=== PATIENT | female | born 1990 | race Hispanic/Latino ===

== ENCOUNTER 2022-09-21 18:11 | Emergency (ER) | payer BC ==
[2022-09-21 19:35] LABS: #Eosinphils 0.1 10x3/uL (0.0-0.5); #Monocytes 0.6 10x3/uL (0.0-1.1); #Neutrophils 4.3 10x3/uL (1.5-8.4); %Basophils 0.4 % (0.0-2.0); %Eosinophils 1.2 % (0.0-6.0); %Monocytes 8.1 % (0.0-10.0); Hemoglobin 13.6 g/dL (12.0-15.5); Mean Corpuscular HGB CONC 34.4 g/dL (32.0-36.0); Mean Corpuscular Hemoglobin 28.8 pg (27.0-33.0); Mean Corpuscular Volume 83.5 fl (81.6-98.3); Mean Platelet Volume 8.4 fl (7.4-10.4); Platelet Count 355 10x3/uL (150-450); RBC Distribution Width 13.1 % (11.5-14.5); Red Blood Cell (RBC) Count 4.73 10x6/uL (3.90-5.03); White Blood Cell (WBC) Count 7.4 10x3/uL (3.5-10.5)
[2022-09-21 19:41] LABS: Bilirubin Neg (Negative); Blood, Urine 250 (Negative); Glucose, Urine (Dipstick) Normal (Negative); Ketone, Urine Negative (Negative); Leukocyte Negative (Negative); Nitrite Negative (Negative); Protein, Urine (Dipstick) Negative (Neg-Trace); Urobilinogen Normal mg/dL (Less than 2)
[2022-09-21 19:42] LABS: Clarity Clear (Clear)
[2022-09-21 19:47] LABS: ALT (SGPT) 18 U/L (8-55); AST (SGOT) 17 U/L (5-34); Alkaline Phosphatase 66 U/L (40-110); Anion Gap 12 mmol/L (10-20); BUN (Urea Nitrogen) 11 mg/dL (7.0-18.7); Bilirubin, Total 0.4 mg/dL (0.2-1.2); Calc. Creatinine Clearance 0 mL/min (70-130); Calcium 9.5 mg/dL (7.8-10.44); Carbon Dioxide 24 mmol/L (22-29); Chloride 106 mmol/L (98-107); Estimated GFR 120; Glucose 99 mg/dL (70-105); Potassium 3.5 mmol/L (3.5-5.1); Sodium 138 mmol/L (136-145)
[2022-09-21 19:48] LABS: Bacteria/HPF 2+ HPF (None Seen); Mucous/LPF 1+ LPF (<2+); WBC/HPF 0-3 HPF (0-3)
== END 2022-09-21 21:04 ==
LOC: CSHERS 18:11
DX: O20.0 Threatened abortion (principal); Z3A.01 Less than 8 weeks gestation of pregnancy
CPT/HCPCS: 76856; 80053; 81003; 81015; 84702; 85025; 86900; 86901; 87086

== ENCOUNTER 2023-10-22 15:58 | Observation (INO) | payer BC ==
[2023-10-22] MEDS ORDERED: hydrALAZINE 20 MG/ML VIAL SLOW IVP PRN (16:08)
[2023-10-22 16:25] VITALS: BMI 25.6
[2023-10-22] MEDS: Lactated Ringer's 1,000 ML IV SCH (17:58)
[2023-10-22] MEDS: Morphine 4 MG/ML VIAL SLOW IVP PRN (17:59)
[2023-10-22 18:17] LABS: #Basophils 0.1 10x3/uL (0.0-0.2); #Monocytes 0.7 10x3/uL (0.0-1.1); #Neutrophils 10.7 10x3/uL (1.5-8.4); %Basophils 0.4 % (0.0-2.0); %Eosinophils 0.3 % (0.0-6.0); %Monocytes 5.2 % (0.0-10.0); %Neutrophils 82.6 % (40.0-75.0); Hematocrit 34.5 % (34.9-44.5); Mean Corpuscular HGB CONC 34.8 g/dL (32.0-36.0); Mean Corpuscular Volume 83.3 fl (81.6-98.3); Mean Platelet Volume 8.7 fl (7.4-10.4); Platelet Count 284 10x3/uL (150-450); Red Blood Cell (RBC) Count 4.14 10x6/uL (3.90-5.03)
[2023-10-22 18:29] LABS: ALT (SGPT) 37 U/L (8-55); AST (SGOT) 28 U/L (5-34); Albumin 3.8 g/dL (3.5-5.0); Alkaline Phosphatase 81 U/L (40-110); Anion Gap 14 mmol/L (10-20); BUN (Urea Nitrogen) 10 mg/dL (7.0-18.7); Bilirubin, Total 0.5 mg/dL (0.2-1.2); Calc. Creatinine Clearance 100 mL/min (70-130); Calcium 8.9 mg/dL (7.8-10.44); Carbon Dioxide 20 mmol/L (22-29); Chloride 105 mmol/L (98-107); Estimated GFR 99; Globulin 3.4 g/dL (2.4-3.5); Glucose 80 mg/dL (70-105); Potassium 3.5 mmol/L (3.5-5.1); Protein, Total 7.2 g/dL (6.0-8.3); Sodium 135 mmol/L (136-145)
[2023-10-22] MEDS ORDERED: Ondansetron ODT 4 MG TAB PO PRN (19:13)
[2023-10-22] MEDS ORDERED: Ondansetron PF 4 MG/2 ML Vial IVP PRN (19:13)
[2023-10-22] MEDS ORDERED: Sodium Chloride 0.9% 1,000 ML IV SCH (19:15)
[2023-10-22] MEDS ORDERED: cefTRIAXone\\ROCEPHIN 2 GM in Sodium Chloride 0.9% 100 ML IVPB SCH (21:00)
[2023-10-23] MEDS: Acetaminophen 500 MG TAB PO PRN (09:13)
== END 2023-10-23 14:42 | disposition home or self-care (01) ==
LOC: CSHLD/OP 15:58 → INTOOBSV 19:34 → CSHLD 19:34
PROVIDERS: ADMIT Obstetrics & Gynecology; ATTEND Obstetrics & Gynecology
DX: O99.891 Other specified diseases and conditions complicating pregnancy (principal); N13.2 Hydronephrosis with renal and ureteral calculous obstruction; Z3A.27 27 weeks gestation of pregnancy; Z79.899 Other long term (current) drug therapy; Z91.013 Allergy to seafood
CPT/HCPCS: 74181; 76770; 80053; 85025; G0378; J0696; J2270; J3490; J7050

== ENCOUNTER 2024-01-07 09:28 | Inpatient (IN) | payer BC ==
[~2024-01-07 09:28] MED LIST: Bupivacaine/Epinephrine 0.25% 30 ML VIAL ONE; ePHEDrine Sulfate 50 MG/10 ML VIAL ONE
[2024-01-07 09:47] VITALS: BMI 27.1
[2024-01-07 10:33] LABS: Creatinine, Urine Less than 20.00 mg/dL (47-110); Protein, Urine Random Quant Less than 10 mg/dL (1-14)
[2024-01-07 10:43] LABS: #Basophils 0.05 10x3/uL (0.0-0.2); #Eosinphils 0.07 10x3/uL (0.0-0.5); #Neutrophils 8.47 10x3/uL (1.5-8.4); %Basophils 0.4 % (0.0-2.0); %Eosinophils 0.6 % (0.0-6.0); %Lymphocytes 15.9 % (18.0-47.0); %Monocytes 7.9 % (0.0-10.0); %Neutrophils 74.7 % (40.0-75.0); Hematocrit 33.8 % (34.9-44.5); Hemoglobin 11.5 g/dL (12.0-15.5); Mean Corpuscular Hemoglobin 27.5 pg (27.0-33.0); Mean Corpuscular Volume 80.9 fl (81.6-98.3); Mean Platelet Volume 9.3 fl (7.4-10.4); Platelet Count 327 10x3/uL (150-450); RBC Distribution Width 14.6 % (11.5-14.5); Red Blood Cell (RBC) Count 4.18 10x6/uL (3.90-5.03); White Blood Cell (WBC) Count 11.4 10x3/uL (3.5-10.5)
[2024-01-07 10:59] LABS: ALT (SGPT) 15 U/L (8-55); AST (SGOT) 21 U/L (5-34); Albumin 2.6 g/dL (3.5-5.0); Alkaline Phosphatase 187 U/L (40-110); Anion Gap 12 mmol/L (10-20); BUN (Urea Nitrogen) 8 mg/dL (7.0-18.7); Bilirubin, Total 0.5 mg/dL (0.2-1.2); Calc. Creatinine Clearance 134 mL/min (70-130); Calcium 9.2 mg/dL (7.8-10.44); Carbon Dioxide 18 mmol/L (22-29); Chloride 107 mmol/L (98-107); Estimated GFR 120; Globulin 3.9 g/dL (2.4-3.5); Glucose 84 mg/dL (70-105); Potassium 4.1 mmol/L (3.5-5.1); Protein, Total 6.5 g/dL (6.0-8.3); Sodium 133 mmol/L (136-145)
[2024-01-07] MEDS: hydrALAZINE 20 MG/ML VIAL ONE (11:08)
[2024-01-07] MEDS: Magnesium Sulfate 20 gm/500 ml 20 GM/500 ML BAG ONE (11:22)
[2024-01-07] MEDS ORDERED: Labetalol HCl 100 MG/20 ML VIAL SLOW IVP PRN ×2 (12:22)
[2024-01-07] MEDS ORDERED: Lorazepam 2 MG/ML VIAL SLOW IVP PRN (12:22)
[2024-01-07] MEDS: Misoprostol 100 MCG TAB VAG SCH (12:22)
[2024-01-07] MEDS ORDERED: Ibuprofen 800 MG TAB PO PRN (12:22)
[2024-01-07] MEDS ORDERED: hydrALAZINE 20 MG/ML VIAL SLOW IVP PRN (12:22)
[2024-01-07] MEDS ORDERED: HYDROcodone/Acetaminophen 5/325 mg Tablet PO PRN ×2 (12:22)
[2024-01-07] MEDS ORDERED: fentaNYL 50 mcg/mL 1 mL Vial SLOW IVP PRN (12:22)
[2024-01-07] MEDS ORDERED: Calcium Gluc 4.6 MEQ/10 ML (100 MG/ML) SLOW IVP PRN (12:22)
[2024-01-07] MEDS ORDERED: Lidocaine 1% (PF) 30 ML VIAL SC PRN (12:22)
[2024-01-07] MEDS ORDERED: Promethazine HCl 25 MG/ML VIAL IM PRN ×2 (12:22→20:34)
[2024-01-07] MEDS ORDERED: Oxytocin 30 units/NS 500 ML 500 ML IV SCH (12:30)
[2024-01-07] MEDS ORDERED: Magnesium Sulfate 20 gm/500 ml 20 GM/500 ML BAG IVPB SCH (12:30)
[2024-01-07 13:48] LABS: Syphilis Antibody Nonreactive (Nonreactive); Syphilis Antibody Index 0.08 S/CO (<1.00 Non-Reactive)
[2024-01-07 13:49] LABS: HBsAg Index 0.19 S/CO (0-0.99); Hep B Surf Ag - L&D Non-Reactive S/CO (NonReactive)
[2024-01-07] MEDS: Acetaminophen 500 MG TAB PO PRN (16:00)
[2024-01-07] MEDS: Ondansetron PF 4 MG/2 ML Vial IVP PRN (16:53)
[2024-01-07] MEDS: hydrALAZINE 20 MG/ML VIAL SLOW IVP PRN (18:37)
[2024-01-07] MEDS: Misoprostol 100 MCG TAB ONE (19:36)
[2024-01-07] MEDS: fentaNYL/Ropivacaine Epidural 100 ML ONE (20:08)
[2024-01-07] MEDS ORDERED: Ondansetron PF 4 MG/2 ML Vial IVP PRN (20:34)
[2024-01-07] MEDS ORDERED: Acetaminophen 325 MG TAB PO PRN (20:34)
[2024-01-07] MEDS ORDERED: Naloxone HCl 0.4 mg/ml Vial IVP PRN ×2 (20:34)
[2024-01-07] MEDS ORDERED: ePHEDrine Sulfate 50 MG/10 ML VIAL SLOW IVP PRN (20:34)
[2024-01-07] MEDS ORDERED: diphenhydrAMINE 50 MG/ML VIAL IVP PRN (20:34)
[2024-01-07] MEDS ORDERED: Lactated Ringer's 500 ML IV PRN (20:34)
[2024-01-07] MEDS ORDERED: Moisturizing Cream (Eucerin) 113 GM JAR TOP PRN (20:34)
[2024-01-07] MEDS ORDERED: fentaNYL 2 mcg/Ropivacaine 0.2% Epidural 100 ML CADD EPIDURAL SCH (20:45)
[2024-01-07] MEDS ORDERED: Communication Order-Pharmacy FS SCH (20:45)
[2024-01-07] MEDS: Oxytocin 30 units/NS 500 ML 500 ML IV SCH (21:12)
[2024-01-08] MEDS: Phenylephrine 10 MG/ML VIAL ONE (01:14)
[2024-01-08] MEDS: PHENYLEPHRINE-NS 100 MCG/ML 10 ML SYRINGE ONE (01:14)
[2024-01-08] MEDS: Lactated Ringer's 1,000 ML IV SCH (01:15)
[2024-01-08] MEDS ORDERED: traMADol HCl 50 MG TAB PO PRN (01:43)
[2024-01-08] MEDS ORDERED: Bisacodyl 10 MG SUPP PR PRN ×2 (01:43→18:48)
[2024-01-08] MEDS ORDERED: Ondansetron PF 4 MG/2 ML Vial IVP PRN ×2 (01:43→18:48)
[2024-01-08] MEDS ORDERED: Boostrix 0.5 ML (Tdap) VIAL (>/=7 yrs of age) IM ONE (01:43)
[2024-01-08] MEDS ORDERED: hydrALAZINE 20 MG/ML VIAL SLOW IVP PRN ×2 (01:43→18:48)
[2024-01-08] MEDS ORDERED: Preparation H Ointment 28 GM TUBE PR PRN (01:43)
[2024-01-08] MEDS ORDERED: Milk Of Magnesia 30 ML UDCUP PO PRN ×2 (01:43→18:48)
[2024-01-08] MEDS ORDERED: Benzocaine-Menthol 82.5 ML CAN TOP PRN (01:43)
[2024-01-08] MEDS ORDERED: Lanolin Ointment 7 GM TUBE TOP PRN ×2 (01:43→18:48)
[2024-01-08] MEDS ORDERED: diphenhydrAMINE 25 MG CAP PO PRN ×2 (01:43→18:48)
[2024-01-08] MEDS ORDERED: Carboprost 250 MCG/ML AMP IM PRN (01:46)
[2024-01-08] MEDS ORDERED: Diphenoxylate HCl/Atropine Tablet PO PRN (01:47)
[2024-01-08] MEDS: Oxytocin 30 units/NS 500 ML 500 ML IV SCH (01:47)
[2024-01-08] MEDS: Ampicillin/Sulbactam 3 GM in Sodium Chloride 0.9% 100 ML IVPB SCH (02:12)
[2024-01-08] MEDS: Ibuprofen 800 MG TAB PO SCH ×2 (02:26→20:20)
[2024-01-08 03:21] LABS: #Basophils 0.03 10x3/uL (0.0-0.2); #Neutrophils 18.09 10x3/uL (1.5-8.4); %Basophils 0.1 % (0.0-2.0); %Lymphocytes 5.2 % (18.0-47.0); %Monocytes 4.5 % (0.0-10.0); %Neutrophils 89.8 % (40.0-75.0); Hematocrit 32.1 % (34.9-44.5); Hemoglobin 10.8 g/dL (12.0-15.5); Mean Corpuscular HGB CONC 33.6 g/dL (32.0-36.0); Mean Corpuscular Hemoglobin 26.9 pg (27.0-33.0); Mean Platelet Volume 9.1 fl (7.4-10.4); Platelet Count 309 10x3/uL (150-450); RBC Distribution Width 14.6 % (11.5-14.5); Red Blood Cell (RBC) Count 4.01 10x6/uL (3.90-5.03); White Blood Cell (WBC) Count 20.2 10x3/uL (3.5-10.5)
[2024-01-08] MEDS ORDERED: Ibuprofen 800 MG TAB PO SCH (06:00)
[2024-01-08] MEDS: Acetaminophen 500 MG TAB PO SCH (08:50)
[2024-01-08] MEDS: NIFEdipine XL 30 MG ER.TAB PO SCH (08:50)
[2024-01-08] MEDS: Prenatal Vitamin 1 TAB PO SCH (08:51)
[2024-01-08] MEDS: Docusate 100 MG CAP PO SCH ×2 (15:15→20:20)
[2024-01-08] MEDS: Ferrous Sulfate 325 MG TAB PO SCH (15:15)
[2024-01-08] MEDS: Tranexamic Acid 1,000 MG/10 ML VIAL ONE (15:16)
[2024-01-08] MEDS: Misoprostol 200 MCG TAB ONE (15:16)
[2024-01-08] MEDS: Carboprost 250 MCG/ML AMP ONE (15:17)
[2024-01-08] MEDS: hydrALAZINE 20 MG/ML VIAL SLOW IVP PRN (17:35)
[2024-01-08] MEDS ORDERED: Oxytocin 30 units/NS 500 ML 500 ML IV SCH (18:48)
[2024-01-08] MEDS: Benzocaine-Menthol 82.5 ML CAN TOP PRN (20:19)
[2024-01-08] MEDS: HYDROcodone/Acetaminophen 5/325 mg Tablet PO PRN (20:21)
[2024-01-09] MEDS: Ferrous Sulfate 325 MG TAB PO SCH ×2 (04:45→09:38)
[2024-01-09 11:23] VITALS: BP 128/82; TEMP 98.5
== END 2024-01-09 15:20 | disposition home or self-care (01) | DRG 807 ==
LOC: CSHLD/OP 09:28 → CSHLD 10:43 → CSHPP 01-08 17:34
PROVIDERS: ADMIT Obstetrics & Gynecology; ATTEND Obstetrics & Gynecology
PROC: 10E0XZZ Delivery of Products of Conception, External Approach (ICD-10-PCS; principal; 2024-01-08)
PROC: 0HQ9XZZ Repair Perineum Skin, External Approach (ICD-10-PCS; 2024-01-08)
PROC: 0UQMXZZ Repair Vulva, External Approach (ICD-10-PCS; 2024-01-08)
PROC: 3E0P7VZ Introduction of Hormone into Female Reproductive, Via Natural or Artificial Opening (ICD-10-PCS; 2024-01-08)
PROC: 3E033XZ Introduction of Vasopressor into Peripheral Vein, Percutaneous Approach (ICD-10-PCS; 2024-01-08)
DX: O14.14 Severe pre-eclampsia complicating childbirth (principal); Z37.0 Single live birth; O70.0 First degree perineal laceration during delivery; Z3A.38 38 weeks gestation of pregnancy; O76 Abnormality in fetal heart rate and rhythm complicating labor and delivery; O71.82 Other specified trauma to perineum and vulva
CPT/HCPCS: 36415; 51702; 80053; 82570; 84156; 85025; 86780; 86850; 86900; 86901; 87340; 99285; J0295; J0360; J2371; J2405; J2590; J3475; J3490

== ENCOUNTER 2024-05-14 17:55 | Emergency (ER) | payer BC ==
[2024-05-14] MEDS ORDERED: Metoclopramide HCl 10 MG (2 mL) VIAL ONE (19:06)
[2024-05-14] MEDS ORDERED: Ketorolac Tromethamine 30 MG (1 mL) VIAL ONE (19:06)
[2024-05-14] MEDS ORDERED: diphenhydrAMINE 50 MG/ML VIAL ONE (19:06)
[2024-05-14 19:16] LABS: #Basophils 0.03 10x3/uL (0.0-0.2); #Eosinphils 0.19 10x3/uL (0.0-0.5); #Monocytes 0.56 10x3/uL (0.0-1.1); #Neutrophils 4.64 10x3/uL (1.5-8.4); %Basophils 0.4 % (0.0-2.0); %Eosinophils 2.4 % (0.0-6.0); %Lymphocytes 32.1 % (18.0-47.0); %Neutrophils 57.9 % (40.0-75.0); Hematocrit 41.3 % (34.9-44.5); Hemoglobin 13.5 g/dL (12.0-15.5); Mean Corpuscular HGB CONC 32.7 g/dL (32.0-36.0); Mean Corpuscular Hemoglobin 26.2 pg (27.0-33.0); Mean Platelet Volume 8.6 fL (7.4-10.4); Platelet Count 372 10x3/uL (150-450); RBC Distribution Width 13.5 % (11.5-14.5); Red Blood Cell (RBC) Count 5.16 10x6/uL (3.90-5.03)
[2024-05-14 19:23] LABS: ALT (SGPT) 21 U/L (8-55); AST (SGOT) 21 U/L (5-34); Albumin 4.1 g/dL (3.5-5.0); Alkaline Phosphatase 87 U/L (40-110); Anion Gap 15 mmol/L (10-20); BUN (Urea Nitrogen) 13 mg/dL (7.0-18.7); Bilirubin, Total 0.4 mg/dL (0.2-1.2); Calc. Creatinine Clearance 0 mL/min (70-130); Calcium 9.4 mg/dL (7.8-10.44); Carbon Dioxide 22 mmol/L (22-29); Chloride 104 mmol/L (98-107); Estimated GFR 101; Globulin 3.3 g/dL (2.4-3.5); Glucose 94 mg/dL (70-105); Potassium 3.5 mmol/L (3.5-5.1); Protein, Total 7.4 g/dL (6.0-8.3); Sodium 137 mmol/L (136-145)
[2024-05-14 19:29] LABS: Troponin I Less than 0.010 ng/mL (< 0.028)
[2024-05-14] MEDS ORDERED: Ondansetron PF 4 MG/2 ML Vial ONE (20:56)
[2024-05-14] MEDS ORDERED: hydrALAZINE 20 MG/ML VIAL ONE (20:56)
== END 2024-05-14 21:37 | disposition home or self-care (01) ==
LOC: CSHERS 17:55
DX: I16.0 Hypertensive urgency (principal); R51.9 Headache, unspecified
CPT/HCPCS: 70450; 71045; 80053; 84484; 85025; 93005; 96374; 96375; J0360; J1200; J1885; J2405; J2765

== ENCOUNTER 2025-05-11 14:01 | Outpatient (CLI) | payer BC | END 2025-05-11 14:02 | disposition home or self-care (01) | LOC: CSHULT 14:01 | PROVIDERS: ATTEND Urology | DX: N13.5 Crossing vessel and stricture of ureter without hydronephrosis (principal); N13.30 Unspecified hydronephrosis; N28.1 Cyst of kidney, acquired | CPT/HCPCS: 76770 ==